=== PATIENT | male | born 2000 | race Caucasian/White ===

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

== ENCOUNTER 2023-05-15 09:01 | Emergency (ER) | payer BC ==
[~2023-05-15] VITALS: Ht 177.8 cm; Wt 68.2 kg
[2023-05-15] MEDS ORDERED: NS 1,000 ML IV ONE (09:15)
[2023-05-15 09:36] LABS: BASO # 0.02 K/mm3 (0.02-0.10); EOS # 0.12 K/mm3 (0.04-0.40); EOS % 3.4 % (0.0-4.0); HEMOGLOBIN 16.1 g/dL (13.5-18.0); LYMPH# 1.15 K/mm3 (1.50-4.00); MEAN CELL VOLUME 92 fl (78-100); MEAN CORPUSCULAR HEMOGLOBIN 32 pg (27-31); MEAN CORPUSCULAR HGB CONC 34 g/dL (33-37); MEAN PLATELET VOLUME 9.2 fl (7.4-10.4); MONO # 0.41 K/mm3 (0.20-0.80); NEU # 1.87 K/mm3 (1.40-6.50); PLATELET COUNT 209 K/mm3 (130-400); RED CELL DISTRIBUTION WIDTH 12.2 % (11.5-14.5); WHITE BLOOD COUNT 3.6 K/mm3 (4.8-10.8)
[2023-05-15 09:40] LABS: ALBUMIN 4.9 g/dL (3.5-5.0)
[2023-05-15 09:41] LABS: SODIUM 143 mmol/L (136-145)
[2023-05-15 09:42] LABS: CALCIUM 10.5 mg/dL (8.3-10.5)
[2023-05-15 09:43] LABS: GLUCOSE 99 mg/dL (75-110); TOTAL PROTEIN 7.1 g/dL (6.4-8.3)
[2023-05-15 09:44] LABS: CARBON DIOXIDE 26 mmol/L (22-29)
[2023-05-15 09:45] LABS: TOTAL BILIRUBIN 2.4 mg/dL (0.2-1.2)
[2023-05-15 09:48] LABS: AST-SGOT 22 U/L (5-34)
[2023-05-15 09:49] LABS: ALT/SGPT 18 U/L (0-55)
[2023-05-15 09:56] LABS: TROPONIN-I < 0.030 ng/mL (0.00-0.033)
[2023-05-15] MEDS ORDERED: Ketorolac 30 MG/ML VIAL IV ONE (10:15)
[2023-05-15 11:38] VITALS: BP 109/65
== END 2023-05-15 11:38 | disposition home or self-care (01) ==
LOC: ED 09:01
PROVIDERS: Family Medicine
DX: R07.89 Other chest pain (principal); D72.819 Decreased white blood cell count, unspecified
CPT/HCPCS: J1885